=== PATIENT | male | born 1980 | race Caucasian/White ===

== ENCOUNTER 2016-09-12 11:30 | Emergency (ER) | payer BC ==
[2016-09-12 12:53] VITALS: BP 153/85
--- NOTE | 2016-09-12 13:46 | UC ---
Respiratory Complaint HPI - HPI Summary HPI Summary: 35 male presents complaining of chest/nasal congestion, cough, mild sore throat for the past 3 days that have not improved. Patient states he has not been sick in a few years and he was unable to go to work 2 days ago. He states he thinks he broke a fever during the night last night and had an episode of throat tightening with coughing fits around 1am last night. He states he feels fine now and actually thinks he is getting better. He has been taking dayquil during the day which does seem to help with symptoms. States his sore throat and cough is mainly in the morning and is better now. He does admit to being exposed to an ill child of his friends over the weekend. Denies chest pain, difficulty breathing, nausea, vomiting, abdominal pain and diarrhea. - History of Current Complaint Chief Complaint: UCRespiratory Stated Complaint: SORE THROAT Time Seen by Provider: 09/12/16 13:13 Hx Obtained From: Patient Onset/Duration: Sudden Onset, Lasting Days Timing: Intermittent Episodes - worse in the morning Character: Sputum Description: - green/yellow, solid and mucus like Aggravating Factors: Recumbent Position Alleviating Factors: OTC Meds - dayquil - Allergies/Home Medications Allergies/Adverse Reactions: Allergies Allergy/AdvReac Type Severity Reaction Status Date / Time seasonal allergies Allergy Eyes Uncoded 09/12/16 12:54 Itchy/Swollen/Red/Watery PMH/Surg Hx/FS Hx/Imm Hx Endocrine History Of: Denies: Diabetes, Thyroid Disease Cardiovascular History Of: Denies: Cardiac Disorders, Hypertension Respiratory History Of: Denies: Asthma - Surgical History Surgical History: None - Family History Known Family History: Positive: None - Social History Alcohol Use: Occasionally Substance Use Type: None Smoking Status (MU): Never Smoked Tobacco Review of Systems Constitutional: Fever, Chills, Fatigue Skin: Negative Eyes: Negative ENT: Sore Throat, Nasal Discharge Respiratory: Cough Cardiovascular: Negative Gastrointestinal: Negative Genitourinary: Negative Motor: Negative Neurovascular: Negative Musculoskeletal: Negative Neurological: Headache Psychological: Negative All Other Systems Reviewed And Are Negative: Yes Physical Exam Triage Information Reviewed: Yes Appearance: Well-Appearing, No Pain Distress, Well-Nourished Vital Signs: Initial Vital Signs Temp 97.3 F 09/12/16 12:49 Pulse 94 09/12/16 12:49 Resp 14 09/12/16 12:49 BP 153/85 09/12/16 12:49 Pulse Ox 98 09/12/16 12:49 blood pressure elevated. states it is usually elevated at doctors offices Vital Signs Reviewed: Yes Eyes: Positive: Conjunctiva Clear ENT: Positive: Hearing grossly normal, Pharynx normal - post nasal drip noted, Nasal congestion - sounds congested upon speaking. non tender maxillary and frontal sinuses on percussion, Nasal drainage, TMs normal. Negative: Tonsillar swelling, Tonsillar exudate Dental Exam: Normal Neck: Positive: Supple, Nontender, No Lymphadenopathy Respiratory: Positive: Chest non-tender, Lungs clear, Normal breath sounds, No respiratory distress Cardiovascular: Positive: RRR, No Murmur, Pulses Normal, Brisk Capillary Refill Abdomen Description: Positive: Nontender, No Organomegaly, Soft Bowel Sounds: Positive: Present Musculoskeletal Exam: Normal Neurological Exam: Normal Psychological Exam: Normal Skin Exam: Normal UC Diagnostic Evaluation - Laboratory O2 Sat by Pulse Oximetry: 98 Respiratory Course/Dx - Course Course Of Treatment: patient was told to continue using OTC medication. appears to be a viral URI. will send short course of steroids to help with swelling/ inflammation if throat feels tight again. also sent flonase for nasal congestion. told if symptoms persist over the next 10 days or worsen to return or follow up with pcp. advised to try saline rinses and mucinex - Differential Dx/Diagnosis Differential Diagnosis/HQI/PQRI: Bronchitis, Influenza, Laryngitis, Sinusitis Provider Diagnoses: Upper Respiratory Infection Discharge - Discharge Plan Condition: Stable Disposition: HOME Prescriptions: Fluticasone NASAL SPRAY 50MCG* [Flonase NASAL SPRAY 50MCG*] 2 spray BOTH NARES DAILY #1 btl predniSONE TAB* [Deltasone TAB*] 40 mg PO DAILY #6 tab Patient Education Materials: Upper Respiratory Infection (ED) Referrals: Non Staff,Doctor [Primary Care Provider] - Additional Instructions: Take medication as prescribed to help with inflammation if the symptoms persist in the next 3 days. Use flonase nasal spray as prescribed. Use saline rinses/ kandy pots, Mucinex, Ibprofen and Dayquil for symptomatic relief. Cough drops or cough medicine at night may also help with sleeping. Drink plenty of fluids and get lots rest. If symptoms worsen or persist past 14 days please follow up with your primary care provider or return to UC.
== END 2016-09-12 13:52 | disposition home or self-care (01) ==
LOC: UCCORT 11:30
DX: J06.9 Acute upper respiratory infection, unspecified (principal)
CPT/HCPCS: 99202; G0463

== ENCOUNTER → 2018-07-03 07:29 | Emergency (ER) | payer SELFPAY ==
[~2018-07-03 07:29] MED LIST: Tetan/Diph/Pertus SYR(Tdap)* 0.5 ML SYR(BOOSTRIX) use SYR IM ONE
--- NOTE | 2018-07-06 14:57 | UC ---
Discharge - Sign-Out/Discharge Documenting (check all that apply): Post-Discharge Follow Up All imaging exams completed and their final reports reviewed: No Studies - Discharge Plan Condition: Stable Disposition: HOME Referrals: No Primary Care Phys,NOPCP [Primary Care Provider] - - Billing Disposition and Condition Condition: STABLE Disposition: Home
== END | disposition home or self-care (01) ==
LOC: UCCORT 07:29 → OHCORT 07:29
DX: Z00.00 Encounter for general adult medical examination without abnormal findings (principal)
CPT/HCPCS: 90715